=== PATIENT | male | born 1970 | race Native Hawaiian/Other Pacific Islander ===

== ENCOUNTER 2018-11-30 09:02 | Outpatient (CLI) | payer OTHER ==
[2018-11-30 09:34] LABS: PLATELET COUNT 159 K/uL (142-355)
[2018-11-30 10:00] LABS: POTASSIUM 4.2 mmol/L (3.6-5.2)
== END 2018-11-30 19:43 | disposition home or self-care (01) ==
LOC: LABW 09:02
PROVIDERS: Internal Medicine Cardiovascular Disease
DX: I25.10 Atherosclerotic heart disease of native coronary artery without angina pectoris (principal)
CPT/HCPCS: 36415; 80048; 85027; 85610